=== PATIENT | male | born 1995 | race African-American/Black ===

== ENCOUNTER 2022-07-06 21:48 | Inpatient (IN) ==
[2022-07-06] MEDS ORDERED: ONDANSETRON INJ 2 MG/ML 2 ML VIAL IV STA (22:21)
[2022-07-06] MEDS ORDERED: SODIUM CHLORIDE 0.9% 1000ML 1,000 ML IV STA (22:21)
[2022-07-06] MEDS ORDERED: ACETAMINOPHEN 1,000 MG/100 ML VIAL IV STA (22:21)
[2022-07-06] MEDS ORDERED: ALBUT/IPRATROP 3MG/0.5MG NEB 3 ML VIAL NEB STA (23:02)
[2022-07-06] MEDS ORDERED: HYDROmorphone INJ 1 MG/ML SYRINGE IV STA (23:02)
--- NOTE | 2022-07-06 23:15 | Emergency Department Note ---
Impression & Plan Pain in testicle, History of right nephrectomy, Hx of unilateral orchiectomy, Epididymitis, Cellulitis of scrotum ED Provider Note INFORMANT: Patient ED PROVIDER(S): Kris Chanel MD CHIEF COMPLAINT: Testicle pain PLAN: Disposition: Admitted Condition: None Outpatient prescription management: none Referral: MEDICAL DECISION MAKING: Patient presented because of testicular pain. On physical examination he did have a red, tender swollen scrotum. He had tenderness clinically over his epididymitis. Patient was treated with IV Rocephin and doxycycline. He had unremarkable blood work and urinalysis. The patient had pain control with IV Dilaudid. Ultrasound imaging revealed findings concerning for scrotal cellulitis. Epididymitis could not be clearly identified per radiology. Clinically has this. In light of his history and current findings we discussed further management in the hospital and the patient was in agreement. Consultation was made with Dr. Jorge Bocanegra of the [facility] service. Patient was evaluated in the ER for further management. 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 Triage Nursing notes reviewed and agree them. Vital Signs: reviewed and remarkable for no significant abnormalities Prior /Outside records reviewed: Prior hospital records and prescriptions reviewed. Differential diagnosis: Testicular torsion, mass, infection, hernia, hydrocele, epididymitis, STI, trauma, intra-abdominal process, as well as other pathologies. Diagnostics, as interpreted by me: ECG: none Cardiac Monitoring: None Medical decision rules: none Imaging studies: Ultrasound imaging reveals evidence of scrotal cellulitis but no evidenceOf torsion HPI: The patient is a 27year old male who presents to the Emergency Room with complaints of testicular pain. This started 3 days ago and is worsening patient notes that he developed the pain. It was nontraumatic. He sought care at a hospital in [place] 2 days ago and had an ultrasound performed. He was diagnosed with epididymitis. He was started on Ceftin, oxycodone, and Zofran. He was given home packs of those medications the patient then went to the pharmacy to get the prescriptions filled but there were issues. They did not have the type of oxycodone prescribed and the pharmacist was concerned about his Ceclor allergy history. They were unable to contact the provider that prescribed the medication for adequate switches. Patient traveled back here from [place] to meet up with his boss. 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 The patient's boss came down to [place] to lemon picker his bus and the patient then drove his vehicle back here to [place]. The patient also notes the following associated symptoms, nausea, palpitations, right groin pain radiating up into the abdomen. The patient has found no benign relieving factors. Current pain is rated as 9/10. Patient has a history of having right kidney removed and left testicle removed. Pt denies fevers, chills, d iaphoresis, visual changes, neck pain, chest pain, breathing difficulties, vomiting, back pain, urinary symptoms, numbness, weakness, lymphadenopathy, rash, or other complaints. 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 Oropharynx unremarkable. EYES: Normal conjunctiva. Sclera non-icteric. NECK: Inspection normal. Non-tender. Supple. No nuchal rigidity. FROM. No masses. RESPIRATORY: Clear to auscultation. No wheezes. No rales. Normal respiratory effort. CARDIAC: Normal rate. Normal rhythm. No murmurs. No rubs. Extremities warm and well perfused. Pulses equal. No JVD. GI: Soft, non-distended. Right groin tenderness to palpation. No rebound or guarding. No masses. : Normal male. Scrotal examination reveals tenderness and swelling. Solitary testicle present. MUSCULOSKELETAL: Atraumatic. Chest examination reveals no tenderness. The back is symmetrical on inspection without obvious abnormality. There is no CVA tenderness to palpation. No joint edema. LOWER EXTREMITIES: Calves are equal size bilaterally and non-tender. No edema. No discoloration. NEURO: Normal sensorium. No sensory or motor deficits noted. SKIN: No rash or jaundice noted. c Past Med/Surg History Surgical History (Updated 07/08/22 @ 02:52 by Kris Chanel MD) History of right nephrectomy Hx of unilateral orchiectomy Social History Smoking Status: Never smoker Hx Alcohol Use: No Hx Substance Use: No Preferred Language: Somali Paralegal Required: No Beliefs That Will Affect Care: None Current Living Situation Comment: Lives with Gram Other Information That Helps Us Care for You: No Feels Safe at Home: Yes Safety Concerns: Feels Safe At This Time Assistive Devices: None Allergies Allergies Allergy/AdvReac Type Severity Reaction Status Date / Time cefaclor [From Ceclor] Allergy Intermediate Rash Verified 07/06/22 22:47 morphine Allergy Intermediate HAND Verified 07/06/22 22:47 SWELLED (GIVEN IV) Home Meds Home Medications Medication Instructions Recorded Confirmed acetaminophen 500 mg tablet 1,000 mg PO DIRECTED PRN Pain 07/06/22 07/06/22 (Tylenol Extra Strength) Results & Data (ED) Vital Signs Vital Signs - 24 hr 07/06/22 21:51 07/06/22 22:56 Temperature 37.4 C Temperature Source Temporal Artery Scan Pulse Rate 80 Pulse Rate [Apical] 69 Respiratory Rate 19 20 Respiratory Effort / Characteristics Non-Labored Spontaneous Respiratory Depth Normal Respiratory Pattern Regular Blood Pressure 126/83 Blood Pressure [Right Arm] 114/87 Blood Pressure Mean 97 Blood Pressure Mean [Right Arm] 96 Pulse Oximetry 100 98 Oxygen Delivery Method Room Air Room Air Sepsis Recent Fever Within 48 Hours No Sepsis New/Unexplained Change in Mental Status N/A Sepsis Action Taken by Nursing No Action Required Laboratory Data 07/06/22 22:50 07/06/22 22:50 Lab Results 07/06/22 07/06/22 07/07/22 Range/Units 22:50 22:50 01:30 WBC 10.80 (4.8-10.8) K/ul RBC 5.08 (4.70-6.10) M/uL Hgb 14.5 (14.0-18.0) g/dl Hct 43.1 (42.0-52.0) % MCV 84.8 (80.0-100.0) fL MCH 28.5 (25.0-34.0) pg MCHC 33.6 (32.0-36.0) g/dL RDW Std Deviation 40.3 (36.4-46.3) fL RDW Coeff of Lavell 13.0 (11.5-14.5) % Plt Count 167 (130-400) K/uL MPV 12.0 (9.4-12.4) fL Immature Gran % (Auto) 0.4 % Neut % (Auto) 74.2 % Lymph % (Auto) 17.0 % [place] % (Auto) 7.4 % Eos % (Auto) 0.7 % Baso % (Auto) 0.3 % Neut # (Auto) 8.01 H (1.40-6.50) K/uL Lymph # (Auto) 1.84 (1.2-3.4) K/uL [place] # (Auto) 0.80 H (0.11-0.59) K/uL Eos # (Auto) 0.08 (0-0.50) K/uL Baso # (Auto) 0.03 (0-0.2) K/uL Immature Gran # (Auto) 0.04 (0.01-0.20) K/uL Sodium 139 (136-145) mmol/L Potassium 3.4 L (3.5-5.1) mmol/L Chloride 103 (98-107) mmol/L Carbon Dioxide 30 (21-32) mmol/L Anion Gap 6 (3-11) BUN 13 (6-23) mg/dl Creatinine 1.02 (0.6-1.4) mg/dl Est Cr Clr Drug Dosing Not Reportable Est GFR ( Amer) 116.2 ml/min Est GFR (Non-Af Amer) 100.3 ml/min BUN/Creatinine Ratio 12.7 (10-20) Glucose 103 H (70-99(Fasting)) mg/dl Calcium 9.4 (8.6-10.3) mg/dl Total Bilirubin 0.6 (0.2-1.0) mg/dl AST 16 (13-39) U/L ALT 14 (7-52) U/L Alkaline Phosphatase 69 (34-104) U/L Total Protein 7.8 (6.0-8.3) gm/dl Albumin 4.2 (3.4-5.0) gm/dl Globulin 3.6 (2.5-4.0) gm/dl Albumin/Globulin Ratio 1.2 (0.9-2) SARS-CoV-2, RNA, NAAT NEGATIVE (NEGATIVE) Administered Medications Acetaminophen (Acetaminophen 325 Mg Tab) 650 mg PO Q4H PRN PRN Reason: pain/fever Stop: 08/06/22 04:32 Last Admin: 07/07/22 09:10 Dose: 650 mg Documented By: NEVIN Hydrocodone Bitart/Acetaminophen (Hydrocodone/Acetamophen 5/325mg Tab) 1 tab PO Q4H PRN PRN Reason: Moderate Pain (Scale 4, 5, 6) Stop: 07/21/22 04:32 Last Admin: 07/07/22 23:35 Dose: 1 tab Documented By: MANPREET Hydromorphone HCl (Hydromorphone Inj 0.5 Mg/0.5 Ml Syr) 0.25 mg IV Q4H PRN PRN Reason: Severe Pain (Scale 7, 8, 9,10) Stop: 07/21/22 04:32 Last Admin: 07/07/22 10:39 Dose: 0.25 mg Documented By: NEVIN Doxycycline Hyclate 100 mg/ (Dextrose) 110 mls @ 50 mls/hr IV Q12H GLORIA Stop: 07/17/22 08:59 Last Infusion: 07/07/22 23:35 Dose: 0 mls/hr Documented By: Admin: 07/07/22 21:24 Dose: 50 mls/hr Documented By: Infusion: 07/07/22 13:44 Dose: 0 mls/hr Documented By: Admin: 07/07/22 10:36 Dose: 50 mls/hr Documented By: NEVIN Ertapenem 1,000 mg/ Syringe 10 mls @ 2 mls/min IV Q24H GLORIA Stop: 07/17/22 07:59 Last Admin: 07/07/22 08:57 Dose: 2 mls/min Documented By: NEVIN Discontinued Medications Albuterol (Albut/Ipratrop 3mg/0.5mg Neb 3 Ml Vial) 3 ml NEB NOW STA; Protocol Stop: 07/06/22 23:03 Last Admin: 07/06/22 23:14 Dose: 3 ml Documented By: SHARLENE Hydromorphone HCl (Hydromorphone Inj 1 Mg/Ml Syringe) 1 mg IV NOW STA Stop: 07/06/22 23:03 Last Admin: 07/06/22 23:15 Dose: 1 mg Documented By: SHARLENE Sodium Chloride (Nss 1000ml) 1,000 mls @ 999 mls/hr IV .Q1H1M STA Stop: 07/06/22 23:21 Last Infusion: 07/06/22 23:51 Dose: 0 mls/hr Documented By: Admin: 07/06/22 22:50 Dose: 999 mls/hr Documented By: SHARLENE Acetaminophen (Ofirmev) 1,000 mg in 100 mls @ 400 mls/hr IV NOW STA Stop: 07/06/22 22:35 Last Infusion: 07/06/22 23:14 Dose: 0 mls/hr Documented By: Admin: 07/06/22 22:51 Dose: 400 mls/hr Documented By: SHARLENE Ceftriaxone Sodium (Rocephin) 2,000 mg in 70 mls @ 140 mls/hr IV NOW STA Stop: 07/07/22 01:37 Last Infusion: 07/07/22 02:11 Dose: 0 mls/hr Documented By: Admin: 07/07/22 01:24 Dose: 140 mls/hr Documented By: SHARLENE Doxycycline Hyclate 100 mg/ (Dextrose) 110 mls @ 50 mls/hr IV NOW STA Stop: 07/07/22 03:19 Last Infusion: 07/07/22 04:12 Dose: 0 mls/hr Documented By: Admin: 07/07/22 02:11 Dose: 50 mls/hr Documented By: SHARLENE Lidocaine HCl (Lidocaine 2% Jelly 5 Ml Tube) Confirm Administered Dose 5 ml EXT .STK-MED ONE Stop: 07/07/22 14:03 Last Admin: 07/07/22 14:23 Dose: Not Given Documented By: NEVIN Ondansetron HCl (Ondansetron Inj 2 Mg/Ml 2 Ml Vial) 4 mg IV NOW STA Stop: 07/06/22 22:22 Last Admin: 07/06/22 22:50 Dose: 4 mg Documented By: SHARLENE Discharge Plan Visit Data Chief Complaint: Groin Pain Stated Complaint: GROIN PAIN ED Provider: Kris Chanel Discharge Problem: Pain in testicle, History of right nephrectomy, Hx of unilateral orchiectomy, Epididymitis, Cellulitis of scrotum Patient Disposition: Admitted As Inpatient Discharge Instructions Interventions: ED Discharge Assessment Last Done: 07/07/22 04:13
[2022-07-06 23:37] LABS: Basophils # (auto) 0.03 K/uL (0-0.2); Basophils % (auto) 0.3 %; Eosinophils # (auto) 0.08 K/uL (0-0.50); Eosinophils % (auto) 0.7 %; Hematocrit (blood only) 43.1 % (42.0-52.0); Hemoglobin 14.5 g/dl (14.0-18.0); Immature Granulocytes # (auto) 0.04 K/uL (0.01-0.20); Immature Granulocytes % (auto) 0.4 %; Lymphocytes # (auto) 1.84 K/uL (1.2-3.4); Mean Corpuscular Hemoglobin 28.5 pg (25.0-34.0); Mean Corpuscular Hgb Conc 33.6 g/dL (32.0-36.0); Mean Corpuscular Volume 84.8 fL (80.0-100.0); Monocytes % (auto) 7.4 %; Neutrophils # (auto) 8.01 K/uL (1.40-6.50); Neutrophils % (auto) 74.2 %; Platelet Count 167 K/uL (130-400); RDW Standard Deviation 40.3 fL (36.4-46.3); Red Blood Count 5.08 M/uL (4.70-6.10)
[2022-07-06 23:39] LABS: Alanine Aminotransferase 14 U/L (7-52); Albumin Globulin Ratio 1.2 (0.9-2); Albumin Level 4.2 gm/dl (3.4-5.0); Alkaline Phosphatase 69 U/L (34-104); Anion Gap 6 (3-11); Aspartate Aminotransferase 16 U/L (13-39); BUN Creatinine Ratio 12.7 (10-20); Bilirubin,Total 0.6 mg/dl (0.2-1.0); Blood Urea Nitrogen 13 mg/dl (6-23); Calcium 9.4 mg/dl (8.6-10.3); Carbon Dioxide 30 mmol/L (21-32); Chloride 103 mmol/L (98-107); Est GFR (African American) 116.2 ml/min; Est GFR (Non-African American) 100.3 ml/min; Globulin 3.6 gm/dl (2.5-4.0); Glucose 103 mg/dl (70-99(Fasting)); Potassium 3.4 mmol/L (3.5-5.1); Sodium 139 mmol/L (136-145); Total Protein 7.8 gm/dl (6.0-8.3)
--- NOTE | 2022-07-07 00:32 | Ultrasound Report ---
Exam(s): US SCROTAL EXAM: US Scrotum CLINICAL HISTORY: Reason for exam: Solitary testicle, severe swelling pain. No trauma. TECHNIQUE: Real-time ultrasound of the scrotum with color Doppler and image documentation. COMPARISON: No relevant prior studies available. FINDINGS: Right testicle: The RIGHT testicle measures 4.2 x 2.3 x 2.4 cm. Positive blood flow. No torsion. Left testicle: Status post LEFT orchiectomy. Epididymides: Nonvisualized epididymis. Mild skin thickening. Correlate for scrotal cellulitis. Scrotum: See above. Lymph nodes: RIGHT inguinal lymph nodes are present. IMPRESSION: 1. Positive for blood flow in the RIGHT testicle. No testicular torsion. 2. Nonvisualized epididymis. Mild skin thickening. Correlate for scrotal cellulitis. Electronically signed by: Thong Carmona MD 07/07/22 00:31 AM
[2022-07-07] MEDS ORDERED: DOXYCYCLINE HYCLATE 100 MG in DEXTROSE 5% 100 ML IV STA (01:08)
[2022-07-07] MEDS ORDERED: cefTRIAXone SODIUM 2,000 MG/70 ML BAG IV STA (01:08)
[2022-07-07] MEDS ORDERED: ONDANSETRON INJ 2 MG/ML 2 ML VIAL IV PRN (04:33)
[2022-07-07] MEDS ORDERED: HYDROCODONE/ACETAMOPHEN 5/325MG TAB PO PRN (04:33)
--- NOTE | 2022-07-07 04:56 | History & Physical Report ---
Date of Service July 07, 2022 Assessment & Plan (1) History of right nephrectomy: (2) Hx of unilateral orchiectomy: (3) Epididymitis: Plan Right epididymitis/orchitis- Initially diagnosed in the [place] emergency department [address] scan with no evidence of testicular torsion, and blood flow into the right testicle was observed Received ceftriaxone and doxycycline IV in the ED here Invanz 1 g IV every 24 hours and doxycycline 100 mg IV every 12 hours Acetaminophen 650 mg by mouth every 6 hours as needed for mild pain or fever [place] 5/325, 1 every 4 hours as needed for moderate pain Dilaudid 0.25 mg IV every 3 hours as needed for severe pain Zofran 4 mg IV every 6 hours as needed Status post 1 L NSS in the ED Consult urology Admission and Anticipated Discharge Date Admission Date: July 07, 2022 History of Present Illness Chief Complaint: The patient presents to the emergency department with complaint of painful right testicle Primary Care Provider: NO PCP The patient is a 27-year-old male with a past medical history of right nephrectomy, left orchiectomy and prune belly syndrome. He presents to the emergency department with a diagnosis from a [place] emergency department of right epididymitis for which he was prescribed Ceftin, but was not filled due to pharmacy concerns regarding allergy to cephalosporins. This occurred 3 days ago, his symptoms have continued to worsen, and he presents to the emergency department at [facility] for further assessment. He reports having had a nephrectomy and orchiectomy performed when he was in fifth grade, and intermittently since that time has had self-limited episodes of hematuria. Allergies Allergy/AdvReac Type Severity Reaction Status Date / Time cefaclor [From Ceclor] Allergy Intermediate Rash Verified 07/06/22 22:47 morphine Allergy Intermediate HAND Verified 07/06/22 22:47 SWELLED (GIVEN IV) Home Medications Medication Instructions Recorded Confirmed Type acetaminophen 500 mg tablet 1,000 mg PO DIRECTED PRN Pain 07/06/22 07/06/22 History (Tylenol Extra Strength) Past Med/Surg History Surgical History (Updated 07/07/22 @ 04:54 by Jorge Bocanegra MD) History of right nephrectomy Hx of unilateral orchiectomy Social History Smoking Status: Unknown if ever smoked Feels Safe at Home: Yes Review of Systems Review of Systems: The patient denies chest pain, palpitations, shortness of breath, dyspnea on exertion, cough, lower extremity swelling, sore throat, fevers, chills, sweats, nausea, vomiting, diarrhea , constipation, blood in urine or stool, dysuria, urinary frequency or urgency, lightheadedness, dizziness, headache, memory loss, loss of consciousness, rash, imbalance, focal or generalized weakness, numbness or tingling in arms or legs, generalized arthralgias or myalgias,neck pain, or night sweats. The review of systems is otherwise negative other than for that already noted above, and at least 10 systems have been reviewed. Physical Exam Physical Exam: The patient is awake, alert and oriented 3, well developed and well nourished, normocephalic and atraumatic, lying in bed and in no acute distress. HEENT--PERRL, EOMI, mucous membranes and oropharynx dry. Neck--supple. No JVD. No bruits. Thyroid normal, trachea midline, no adenopathy. Heart--normal S1 and S2. No murmurs, rubs or gallops. Lungs--clear bilaterally, no respiratory distress, no accessory muscle use. Abdomen/pelvis--normal bowel sounds and soft. Right testicle swollen tender Extremities--no cyanosis or clubbing. No edema. There are good distal pulses b/l. Dermatologic--normal skin turgor, normal color, no abnormal lymph nodes, no rash. Neurologic--cranial nerves II through XII grossly intact. Rheumatologic--normal range of motion. Psychiatric--normal affect. Results & Data Results & Data Vital Signs (Past 12 Hours) Vital Signs Temp Pulse Pulse Resp BP BP Pulse Ox 07/07/22 02:47 72 16 117/73 93 07/07/22 00:15 81 07/07/22 00:15 82 18 127/80 93 07/06/22 23:34 87 L 07/06/22 22:56 69 20 114/87 98 07/06/22 21:51 37.4 C 80 19 126/83 100 O2 Del Method O2 Flow Rate 07/07/22 02:47 Room Air 07/07/22 00:15 07/07/22 00:15 Room Air 07/06/22 23:34 Nasal Cannula 0 07/06/22 22:56 Room Air 07/06/22 21:51 Room Air Laboratory Results Laboratory Results WBC 10.80 K/ul (4.8-10.8) 07/06/22 22:50 RBC 5.08 M/uL (4.70-6.10) 07/06/22 22:50 Hgb 14.5 g/dl (14.0-18.0) 07/06/22 22:50 Hct 43.1 % (42.0-52.0) 07/06/22 22:50 MCV 84.8 fL (80.0-100.0) 07/06/22 22:50 MCH 28.5 pg (25.0-34.0) 07/06/22 22:50 MCHC 33.6 g/dL (32.0-36.0) 07/06/22 22:50 RDW Std Deviation 40.3 fL (36.4-46.3) 07/06/22 22:50 RDW Coeff of Lavell 13.0 % (11.5-14.5) 07/06/22 22:50 Plt Count 167 K/uL (130-400) 07/06/22 22:50 MPV 12.0 fL (9.4-12.4) 07/06/22 22:50 Immature Gran % (Auto) 0.4 % 07/06/22 22:50 Neut % (Auto) 74.2 % 07/06/22 22:50 Lymph % (Auto) 17.0 % 07/06/22 22:50 [place] % (Auto) 7.4 % 07/06/22 22:50 Eos % (Auto) 0.7 % 07/06/22 22:50 Baso % (Auto) 0.3 % 07/06/22 22:50 Neut # (Auto) 8.01 K/uL (1.40-6.50) H 07/06/22 22:50 Lymph # (Auto) 1.84 K/uL (1.2-3.4) 07/06/22 22:50 [place] # (Auto) 0.80 K/uL (0.11-0.59) H 07/06/22 22:50 Eos # (Auto) 0.08 K/uL (0-0.50) 07/06/22 22:50 Baso # (Auto) 0.03 K/uL (0-0.2) 07/06/22 22:50 Immature Gran # (Auto) 0.04 K/uL (0.01-0.20) 07/06/22 22:50 Sodium 139 mmol/L (136-145) 07/06/22 22:50 Potassium 3.4 mmol/L (3.5-5.1) L 07/06/22 22:50 Chloride 103 mmol/L (98-107) 07/06/22 22:50 Carbon Dioxide 30 mmol/L (21-32) 07/06/22 22:50 Anion Gap 6 (3-11) 07/06/22 22:50 BUN 13 mg/dl (6-23) 07/06/22 22:50 Creatinine 1.02 mg/dl (0.6-1.4) 07/06/22 22:50 Est Cr Clr Drug Dosing Not Reportable 07/06/22 22:50 Est GFR ( Amer) 116.2 ml/min 07/06/22 22:50 Est GFR (Non-Af Amer) 100.3 ml/min 07/06/22 22:50 BUN/Creatinine Ratio 12.7 (10-20) 07/06/22 22:50 Glucose 103 mg/dl (70-99(Fasting)) H 07/06/22 22:50 Calcium 9.4 mg/dl (8.6-10.3) 07/06/22 22:50 Total Bilirubin 0.6 mg/dl (0.2-1.0) 07/06/22 22:50 AST 16 U/L (13-39) 07/06/22 22:50 ALT 14 U/L (7-52) 07/06/22 22:50 Alkaline Phosphatase 69 U/L (34-104) 07/06/22 22:50 Total Protein 7.8 gm/dl (6.0-8.3) 07/06/22 22:50 Albumin 4.2 gm/dl (3.4-5.0) 07/06/22 22:50 Globulin 3.6 gm/dl (2.5-4.0) 07/06/22 22:50 Albumin/Globulin Ratio 1.2 (0.9-2) 07/06/22 22:50 SARS-CoV-2, RNA, NAAT NEGATIVE (NEGATIVE) 07/07/22 01:30 Impressions Scrotum Ultrasound 07/06/22 22:21 Exam(s): US SCROTAL EXAM: US Scrotum CLINICAL HISTORY: Reason for exam: Solitary testicle, severe swelling pain. No trauma. TECHNIQUE: Real-time ultrasound of the scrotum with color Doppler and image documentation. COMPARISON: No relevant prior studies available. FINDINGS: Right testicle: The RIGHT testicle measures 4.2 x 2.3 x 2.4 cm. Positive blood flow. No torsion. Left testicle: Status post LEFT orchiectomy. Epididymides: Nonvisualized epididymis. Mild skin thickening. Correlate for scrotal cellulitis. Scrotum: See above. Lymph nodes: RIGHT inguinal lymph nodes are present. IMPRESSION: 1. Positive for blood flow in the RIGHT testicle. No testicular torsion. 2. Nonvisualized epididymis. Mild skin thickening. Correlate for scrotal cellulitis. Electronically signed by: Thong Carmona MD 07/07/22 00:31 AM Code Status & VTE Plan Code Status Full code VTE Prophylaxis Plan VTE Prophylaxis will be ordered: Yes PG Care Time/CCT Total # of Minutes Spent Total Time Spent with Patient: Total time spent is greater than 50% in coordination of care (as documented) at patient's floor/unit and/or counseling patient: Coding Level of Care Code 97639 INT INP/OBS CARE 3/75MIN Diagnoses History of right nephrectomy Z90.5 Hx of unilateral orchiectomy Z90.79 Epididymitis N45.1
--- NOTE | 2022-07-07 08:18 | Hospitalist Progress Note ---
Date of Service July 07, 2022 Assessment & Plan (1) Epididymitis: Plan: Right epididymitis/orchitis- Initially diagnosed in the [place] emergency department , rx ceftin but did not take wit h/o cephalosporin allergy Scrotum ultrasound with no evidence of testicular torsion, and blood flow into the right testicle was observed Received ceftriaxone and doxycycline IV in the ED converted to Invanz 1 g IV every 24 hours and doxycycline 100 mg IV every 12 hours Acetaminophen 650 mg by mouth every 6 hours as needed for mild pain or fever [place] 5/325, 1 every 4 hours as needed for moderate pain Dilaudid 0.25 mg IV every 3 hours as needed for severe pain Zofran 4 mg IV every 6 hours as needed Consult urology Right testicular pain is suspicious for epididymitis. He is currently being treated with doxycycline. Would recommend adjusting antibiotics as culture data becomes available if necessary. No evidence for torsion given good blood flow on ultrasound. Pending CT scan abdomen pelvis with oral contrast (2) Prune belly syndrome: Plan: Pt with history of [place] syndrome and reportedly around 5th grade had right nephrectomy and left orchiectomy Admission and Anticipated Discharge Date Admission Date: July 07, 2022 Subjective Patient is in his room he was still having significant right-sided groin pain. He is having difficulty moving about because of the pain. Having no fevers chills nausea vomiting or other issues Physical Exam Physical Exam: Abdomen exam is with NABS and soft he is uncomfortable in the lower quadrants mostly on the right side. His external genitalia showed may have 1 prominent right-sided testicle exquisitely tender to touch I cannot examine for hernia due to the degree of pain the patient was having Results & Data Results & Data Vital Signs (Past 12 Hours) Vital Signs Temp Pulse Pulse Pulse Resp BP BP 07/07/22 07:49 98.4 F 72 18 117/77 07/07/22 04:25 97.5 F L 72 16 07/07/22 02:47 72 16 07/07/22 00:15 81 07/07/22 00:15 82 18 07/06/22 23:34 07/06/22 22:56 69 20 07/06/22 21:51 99.3 F 80 19 126/83 BP Pulse Ox O2 Del Method O2 Flow Rate 07/07/22 07:49 96 Room Air 07/07/22 04:25 110/74 96 Room Air 07/07/22 02:47 117/73 93 Room Air 07/07/22 00:15 07/07/22 00:15 127/80 93 Room Air 07/06/22 23:34 87 L Nasal Cannula 0 07/06/22 22:56 114/87 98 Room Air 07/06/22 21:51 100 Room Air Laboratory Results Reviewed CBC Reviewed PRP Diagnostic Findings Ordered CT scan abdomen pelvis to evaluate for the degree of pain being out of proportion to physical findings PG Care Time/CCT Total # of Minutes Spent Total Time Spent with Patient: Total time spent is greater than 50% in coordination of care (as documented) at patient's floor/unit and/or counseling patient: Coding Level of Care Code 95568 SUB INP/OBS CARE 2/35MIN Diagnoses Epididymitis N45.1 Prune belly syndrome Q79.4
[2022-07-07] MEDS: ERTAPENEM SODIUM 1,000 MG in SYRINGE 0 ML IV SCH (08:57)
[2022-07-07] MEDS: ACETAMINOPHEN 325 MG TAB PO PRN (09:10)
[2022-07-07] MEDS: DOXYCYCLINE HYCLATE 100 MG in DEXTROSE 5% 100 ML IV SCH ×2 (10:36→21:24)
[2022-07-07 10:37] LABS: Appearance Urine Turbid (Clear); Bacteria Urine Automated Negative (Negative); Bilirubin Urine Negative (Negative); Blood Urine 1+ (Negative); Color Urine Dark Yellow; Epithelial Cell Urine Auto >30 /lpf (0-5); Glucose Urine UA Negative (Negative); Ketones Urine Negative (Negative); Leukocyte Esterase Urine 2+ (Negative); Nitrite Urine Negative (Negative); Protein Urine 1+ (Negative); Specific Gravity Urine 1.026 (1.000-1.030); Urobilinogen Urine Negative (Negative); WBC Urine Automated >30 /hpf (0-5); pH Urine 5.5 (4.5-7.5)
[2022-07-07] MEDS: HYDROmorphone INJ 0.5 MG/0.5 ML SYR IV PRN (10:39)
[2022-07-07 10:56] LABS: RBC Urine Automated 0-4 /hpf (0-4)
--- NOTE | 2022-07-07 11:30 | Urology Consultation ---
Date of Consultation July 07, 2022 Assessment & Plan (1) Epididymitis: (2) Pain in testicle: Plan Right testicular pain is suspicious for epididymitis. He is currently being treated with doxycycline. Would recommend adjusting antibiotics as culture data becomes available if necessary. No evidence for torsion given good blood flow on ultrasound. No preceding trauma reported. For pain control would recommend scheduled Tylenol, using hot or cold packs as needed, wearing tight or loose fitting underwear to his comfort. Narcotics reasonable for breakthrough pain. No plan for surgical intervention at this time. Urology will follow along. 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 He presented to the emergency department on 07/06/2022 with testicular pain. He started having pain well a couple days prior and was seen in an emergency department in [place]. At that time he was diagnosed with epididymal orchitis and was treated with a cephalosporin and oxycodone. Due to prior allergy to cephalosporins, the pharmacy did not fill his antibiotic and he instead drove back to [place]. Since that time, the pain is gradually worsened. He denies urinary symptoms alt huyen reports intermittent periods of feeling hot and cold. He feels like Dilaudid helps with the pain. He also notes the pain sometimes goes up into the groin. Evaluation in the emergency department was notable for normal WBC (10.80), hemoglobin 14.5. Creatinine was 1.02 and glucose was 103. Urinalysis was notable for 1+ blood, negative bacteria, negative nitrites, 2+ leukocyte esterase. Scrotal ultrasound was performed. I independently reviewed these images. The left testis is absent. His right testicle is in normal position with some hyperemia. No testicular masses are appreciated. He has mild dilation of the blood vessels of the spermatic cord. Radiology makes note of right inguinal lymph nodes being present. Allergies Allergy/AdvReac Type Severity Reaction Status Date / Time cefaclor [From Ceclor] Allergy Intermediate Rash Verified 07/06/22 22:47 morphine Allergy Intermediate HAND Verified 07/06/22 22:47 SWELLED (GIVEN IV) Home Medications Medication Instructions Recorded Confirmed Type acetaminophen 500 mg tablet 1,000 mg PO DIRECTED PRN Pain 07/06/22 07/06/22 History (Tylenol Extra Strength) Patient History Surgical History (Updated 07/07/22 @ 04:54 by Jorge Bocanegra MD) History of right nephrectomy Hx of unilateral orchiectomy Social History Smoking Status: Never smoker Hx Alcohol Use: No Hx Substance Use: No Preferred Language: Citizen Of [place] Sat Math Tutor Required: No Beliefs That Will Affect Care: None Current Living Situation Comment: Lives with Gram Other Information That Helps Us Care for You: No Feels Safe at Home: Yes Safety Concerns: Feels Safe At This Time Assistive Devices: None Review of Systems Review of Systems: 12 point review of systems negative except for otherwise indicated. Physical Exam Constitutional: well developed and well nourished; no acute distress Eyes: + anicteric sclerae; pupils not irregular Respiratory: normal respiratory effort; no respiratory distress, does not use accessory muscles and no cough Cardiovascular: well perfused Gastrointestinal (Abdomen): Inspection/Auscultation: abdomen normal to inspection; abdomen not distended Musculoskeletal: Extremities: extremities normal to inspection Skin: normal turgor; no rashes and no lesions Neurologic: moves all extremities and awake Psychiatric: Orientation: alert and oriented x 3 Genitourinary: Penis with orthotopic meatus, no discharge or drainage. Left testis is surgically absent. Left groin with minimal tenderness. Tender to palpation in the right groin but no induration of the spermatic cord appreciated and no palpable lymphadenopathy. Right testis is very tender to palpation but does not seem particularly swollen or indurated. No palpable masses appreciated. Results & Data Vital Signs (Past 12 Hours) Vital Signs Temp Pulse Pulse Pulse Resp BP BP 07/07/22 07:49 36.9 C 72 18 117/77 07/07/22 04:25 36.4 C L 72 16 110/74 07/07/22 02:47 72 16 117/73 07/07/22 00:15 81 07/07/22 00:15 82 18 127/80 07/06/22 23:34 Pulse Ox O2 Del Method O2 Flow Rate 07/07/22 07:49 96 Room Air 07/07/22 04:25 96 Room Air 07/07/22 02:47 93 Room Air 07/07/22 00:15 07/07/22 00:15 93 Room Air 07/06/22 23:34 87 L Nasal Cannula 0 PG Care Time/CCT Total # of Minutes Spent Total Time Spent with Patient: Total time spent is greater than 50% in coordination of care (as documented) at patient's floor/unit and/or counseling patient: Coding Level of Care Code 66594 IN/OBS CONSULT LVL 3,45M Diagnoses Epididymitis N45.1 Pain in testicle N50.819
[2022-07-07] MEDS ORDERED: LIDOCAINE 2% JELLY 5 ML TUBE EXT ONE (14:02)
--- NOTE | 2022-07-07 21:36 | Electrocardiogram Report ---
Test Reason : Blood Pressure : / mmHG Vent. Rate : 070 BPM Atrial Rate : 070 BPM P-R Int : 132 ms QRS Dur : 086 ms QT Int : 370 ms P-R-T Axes : 007 041 -01 degrees QTc Int : 399 ms Normal sinus rhythm Nonspecific T wave abnormality Abnormal ECG No previous ECGs available Confirmed by Roshan Santos ([id number]) on 07/07/2022 9:36:16 PM Referred By: REFERRED SELF Confirmed By:Roshan Santos
--- NOTE | 2022-07-07 22:00 | CT Scan Report ---
Exam(s): CT ABDOMEN + PELVIS Without Contrast EXAM: CT Abdomen and Pelvis Without Intravenous Contrast CLINICAL HISTORY: Reason for exam: abd pain. TECHNIQUE: Axial computed tomography images of the abdomen and pelvis without intravenous contrast. CTDI is 20.45 mGy and DLP is 1191.78 mGy-cm. Automated exposure control was utilized for the study. A dose lowering technique was utilized adhering to the principles of ALARA. COMPARISON: No relevant prior studies available. FINDINGS: Lung bases: Unremarkable. No mass. No consolidation. ABDOMEN: Liver: Unremarkable. Gallbladder and bile ducts: Unremarkable. No calcified stones. No ductal dilation. Pancreas: Unremarkable. No ductal dilation. Spleen: Mild splenomegaly measuring 14 cm. Adrenals: Unremarkable. No mass. Kidneys and ureters: Mild-moderate left-sided hydroureteronephrosis, without obstructing calculus. Absent RIGHT kidney, correlate for nephrectomy. Stomach and bowel: Unremarkable. No acute diverticulitis. No small bowel obstruction. No free intraperitoneal air. PELVIS: Appendix: Normal appendix. Bladder: Wall thickening of the urinary bladder. There is dysuria, correlate with urinalysis. No stones. Reproductive: Unremarkable as visualized. ABDOMEN and PELVIS: Intraperitoneal space: Unremarkable. No free air. No significant fluid collection. Bones/joints: No acute fracture. No dislocation. Soft tissues: RIGHT inguinal hernia. Vasculature: Unremarkable. No abdominal aortic aneurysm. Lymph nodes: Unremarkable. No enlarged lymph nodes. IMPRESSION: 1. No acute diverticulitis. No small bowel obstruction. No free intraperitoneal air. 2. Normal appendix. 3. Mild-moderate left-sided hydroureteronephrosis, without obstructing calculus. 4. Wall thickening of the urinary bladder. There is dysuria, correlate with urinalysis. 5. Mild splenomegaly measuring 14 cm. 6. Absent RIGHT kidney, correlate for nephrectomy. Electronically signed by: Thong Carmona MD 07/07/22 21:59 PM
[2022-07-08 07:42] LABS: Basophils # (auto) 0.01 K/uL (0-0.2); Basophils % (auto) 0.2 %; Eosinophils # (auto) 0.14 K/uL (0-0.50); Eosinophils % (auto) 2.2 %; Hematocrit (blood only) 42.1 % (42.0-52.0); Hemoglobin 14.2 g/dl (14.0-18.0); Immature Granulocytes # (auto) 0.01 K/uL (0.01-0.20); Immature Granulocytes % (auto) 0.2 %; Lymphocytes # (auto) 1.28 K/uL (1.2-3.4); Lymphocytes % (auto) 20.2 %; Mean Corpuscular Hemoglobin 28.3 pg (25.0-34.0); Mean Corpuscular Hgb Conc 33.7 g/dL (32.0-36.0); Mean Platelet Volume 11.4 fL (9.4-12.4); Monocytes # (auto) 0.69 K/uL (0.11-0.59); Monocytes % (auto) 10.9 %; Neutrophils % (auto) 66.3 %; Platelet Count 173 K/uL (130-400); RDW Coefficient of Variation 12.9 % (11.5-14.5); RDW Standard Deviation 39.6 fL (36.4-46.3); Red Blood Count 5.01 M/uL (4.70-6.10); White Blood Count 6.33 K/ul (4.8-10.8)
[2022-07-08] MEDS: ERTAPENEM SODIUM 1,000 MG in SYRINGE 0 ML IV SCH (07:50)
--- NOTE | 2022-07-08 07:54 | Hospitalist Progress Note ---
Date of Service July 08, 2022 Assessment & Plan (1) Epididymitis: Plan: Right epididymitis/orchitis- Initially diagnosed in the [place] emergency department , rx ceftin but did not take wit h/o cephalosporin allergy Scrotum ultrasound with no evidence of testicular torsion, and blood flow into the right testicle was observed Received ceftriaxone and doxycycline IV in the ED converted to Invanz 1 g IV every 24 hours and doxycycline 100 mg IV every 12 hours Acetaminophen 650 mg by mouth every 6 hours as needed for mild pain or fever Mclain 5/325, 1 every 4 hours as needed for moderate pain Dilaudid 0.25 mg IV every 3 hours as needed for severe pain Zofran 4 mg IV every 6 hours as needed Consult urology Right testicular pain is suspicious for epididymitis. He is currently being treated with doxycycline. Would recommend adjusting antibiotics as culture data becomes available if necessary. No evidence for torsion given good blood flow on ultrasound. 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 Denies left flank or abdominal pain. Denies fevers or chills. Denies nausea or vomiting. Voiding without issue. Denies hematuria or dysuria. Physical Exam Physical Exam: Abdomen exam is with NABS and soft he is uncomfortable in the lower quadrants mostly on the right side. His external genitalia showed may have 1 prominent right-sided testicle exquisitely tender to touch I cannot examine for hernia due to the degree of pain the patient was having Results & Data Results & Data Vital Signs (Past 12 Hours) Vital Signs Temp Pulse Resp BP Pulse Ox O2 Del Method 07/08/22 07:26 98.2 F 68 16 126/75 97 Room Air 07/07/22 21:16 99.1 F 76 18 131/89 96 Room Air PG Care Time/CCT Total # of Minutes Spent Total Time Spent with Patient: Total time spent is greater than 50% in coordination of care (as documented) at patient's floor/unit and/or counseling patient: Coding Level of Care Code 38645 SUB INP/OBS CARE MIN Diagnoses Epididymitis N45.1 Prune belly syndrome Q79.4
[2022-07-08 07:59] LABS: Albumin Level 3.8 gm/dl (3.4-5.0); BUN Creatinine Ratio 11.5 (10-20); Calcium 9.1 mg/dl (8.6-10.3); Creatinine Clr Calc Pharmacy 126.6 ml/min; Est GFR (Non-African American) 107.9 ml/min; Magnesium 1.9 mg/dl (1.7-2.4); Phosphorus 2.8 mg/dl (2.5-4.9)
[2022-07-08] MEDS: HYDROmorphone INJ 0.5 MG/0.5 ML SYR IV PRN (10:01)
[2022-07-08] MEDS: DOXYCYCLINE HYCLATE 100 MG in DEXTROSE 5% 100 ML IV SCH ×2 (10:02→21:09)
--- NOTE | 2022-07-08 13:53 | Urology Progress Note ---
Date of Service July 08, 2022 Assessment & Plan (1) Epididymitis: (2) Pain in testicle: (3) Hydronephrosis, left: Plan 27yo/M with a history of Prune Belly Syndrome with hx of right nephrectomy and left orchiectomy admitted with right epididymitis. Afebrile and hemodynamically stable. Labs show no leukocytosis and normal renal function. Urine culture prelim no growth. On Doxycycline and Ertapenem. Voiding spontaneously, continue to monitor. Scrotal ultrasound with no evidence of torsion given good blood flow on ultrasound. CT abd pelvis with mild-mod left hydro without obstructing stone, also notes bladder wall thickening. Hydronephrosis with hydroureter appears to be chronic but difficult to definitely determine without prior imaging. Also appears to have mild incomplete emptying. Recommend double voiding and timed voiding. Would also monitor PVR's. May be beneficial to decompress the bladder with a catheter for a few days if found to have elevated PVRs. For pain control would recommend scheduled Tylenol, using hot or cold packs as needed, wearing tight or loose fitting underwear to his comfort. Narcotics are reasonable for breakthrough pain. Continue supportive care and antibiotics, tailor as culture data becomes available. No plan for surgical intervention at this time. Urology will follow. Admission and Anticipated Discharge Date Admission Date: July 07, 2022 Subjective Patient examined at bedside this AM. Awake, resting in bed on arrival. No acute distress. Still with right-sided groin pain. Denies left flank or abdominal pain. Denies fevers or chills. Denies nausea or vomiting. Voiding without issue. Denies hematuria or dysuria. Review of Systems Constitutional: as per Subjective / HPI Gastrointestinal: as per Subjective / HPI Genitourinary: + as per Subjective / HPI Physical Exam Constitutional: no acute distress Respiratory: normal respiratory effort; no respiratory distress Gastrointestinal (Abdomen): Inspection/Auscultation: abdomen normal to inspection; abdomen not distended Neurologic: awake Psychiatric: Orientation: alert and oriented x 3 Genitourinary: Penis with orthotopic meatus, no discharge or drainage. Left testis is surgically absent. Left groin with minimal tenderness. Tender to palpation in the right groin. Right testis is very tender to palpation but does not seem particularly swollen or indurated. No palpable masses appreciated. Results & Data Vital Signs (Past 12 Hours) Vital Signs Temp Pulse Resp BP Pulse Ox O2 Del Method 07/08/22 07:26 36.8 C 68 16 126/75 97 Room Air PG Care Time/CCT Total # of Minutes Spent Total Time Spent with Patient: Total time spent is greater than 50% in coordination of care (as documented) at patient's floor/unit and/or counseling patient: Coding Level of Care Code 76973 SUB INP/OBS CARE 2/35MIN Diagnoses Epididymitis N45.1 Pain in testicle N50.819 Hydronephrosis, left N13.30
[2022-07-08] MEDS: ACETAMINOPHEN 325 MG TAB PO PRN (19:37)
[2022-07-08] MEDS: LIDOCAINE 5% 1 PATCH TD SCH (21:07)
[2022-07-09] MEDS: HYDROmorphone INJ 0.5 MG/0.5 ML SYR IV PRN (06:17)
[2022-07-09 06:39] LABS: Basophils # (auto) 0.02 K/uL (0-0.2); Basophils % (auto) 0.4 %; Eosinophils # (auto) 0.05 K/uL (0-0.50); Hematocrit (blood only) 43.6 % (42.0-52.0); Hemoglobin 14.7 g/dl (14.0-18.0); Immature Granulocytes # (auto) 0.04 K/uL (0.01-0.20); Immature Granulocytes % (auto) 0.8 %; Lymphocytes # (auto) 1.25 K/uL (1.2-3.4); Lymphocytes % (auto) 25.3 %; Mean Corpuscular Hemoglobin 28.5 pg (25.0-34.0); Mean Corpuscular Hgb Conc 33.7 g/dL (32.0-36.0); Mean Corpuscular Volume 84.5 fL (80.0-100.0); Mean Platelet Volume 11.5 fL (9.4-12.4); Monocytes % (auto) 14.2 %; Neutrophils # (auto) 2.88 K/uL (1.40-6.50); Neutrophils % (auto) 58.3 %; Platelet Count 182 K/uL (130-400); RDW Coefficient of Variation 12.7 % (11.5-14.5); RDW Standard Deviation 39.4 fL (36.4-46.3); Red Blood Count 5.16 M/uL (4.70-6.10); White Blood Count 4.94 K/ul (4.8-10.8)
[2022-07-09 07:04] LABS: Calcium 9.3 mg/dl (8.6-10.3); Creatinine Clr Calc Pharmacy 133.6 ml/min; Est GFR (African American) 133.4 ml/min; Est GFR (Non-African American) 115.1 ml/min; Magnesium 1.9 mg/dl (1.7-2.4); Potassium 3.9 mmol/L (3.5-5.1)
[2022-07-09] MEDS ORDERED: oxyCODONE HCL IR 5 MG TAB (IMMEDIATE RELEASE) PO PRN (07:13)
--- NOTE | 2022-07-09 07:14 | Hospitalist Progress Note ---
Date of Service July 09, 2022 Assessment & Plan (1) Epididymitis: Plan: Right epididymitis/orchitis- Initially diagnosed in the [place] emergency department , rx ceftin but did not take wit h/o cephalosporin allergy Scrotum ultrasound with no evidence of testicular torsion, and blood flow into the right testicle was observed Received ceftriaxone and doxycycline IV in the ED converted to Invanz 1 g IV every 24 hours and doxycycline 100 mg IV every 12 hours with pain will have scheduled tyleonol and ultram Dilaudid 0.25 mg IV every 3 hours as needed for severe pain Zofran 4 mg IV every 6 hours as needed Consult urology Right testicular pain is suspicious for epididymitis. He is currently being treated with doxycycline. Would recommend adjusting antibiotics as culture data becomes available if necessary. No evidence for torsion given good blood flow on ultrasound. 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 Voiding without issue. Denies hematuria or dysuria. Physical Exam Physical Exam: Abdomen exam is with NABS and soft he is uncomfortable in the lower quadrants mostly on the right side. Results & Data Results & Data Vital Signs (Past 12 Hours) Vital Signs Temp Pulse Resp BP Pulse Ox O2 Del Method 07/08/22 21:04 99.5 F 82 18 108/69 98 Room Air Laboratory Results Reviewed CBC Reviewed PRP PG Care Time/CCT Total # of Minutes Spent Total Time Spent with Patient: Total time spent is greater than 50% in coordination of care (as documented) at patient's floor/unit and/or counseling patient: Coding Level of Care Code 51117 SUB INP/OBS CARE 235MIN Diagnoses Epididymitis N45.1 Prune belly syndrome Q79.4 Hydronephrosis N13.30 Hydronephrosis, left N13.30
--- NOTE | 2022-07-09 08:14 | Urology Progress Note ---
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 No other change in care right now Admission and Anticipated Discharge Date Admission Date: July 07, 2022 Subjective Still very tender in the left testis No significant change in terms of his perception of the discomfort He does not have an elevated white count He has been afebrile Physical Exam Physical Exam: Very tender left testis to palpationno signs of skin infection or abscess, no fluctuance Results & Data Vital Signs (Past 12 Hours) Vital Signs Temp Pulse Resp BP Pulse Ox O2 Del Method 07/09/22 07:40 36.7 C 55 L 16 100/64 97 Room Air 07/08/22 21:04 37.5 C 82 18 108/69 98 Room Air PG Care Time/CCT Total # of Minutes Spent Total Time Spent with Patient: Total time spent is greater than 50% in coordination of care (as documented) at patient's floor/unit and/or counseling patient: Coding Level of Care Code 63673 SUB INP/OBS CARE 2/35MIN Diagnoses Epididymitis N45.1
[2022-07-09] MEDS: traMADol HCL 50 MG TABLET PO SCH ×3 (09:35→20:28)
[2022-07-09] MEDS: ACETAMINOPHEN 500 MG TAB PO SCH ×3 (09:35→20:28)
[2022-07-09] MEDS: ERTAPENEM SODIUM 1,000 MG in SYRINGE 0 ML IV SCH (09:37)
[2022-07-09] MEDS: DOXYCYCLINE HYCLATE 100 MG in DEXTROSE 5% 100 ML IV SCH ×2 (09:58→20:29)
[2022-07-09] MEDS ORDERED: Nursing to Pharmacy Communication SCH (10:00)
[2022-07-09] MEDS: LIDOCAINE 5% 1 PATCH TD SCH ×2 (10:14→20:37)
[2022-07-10] MEDS: ERTAPENEM SODIUM 1,000 MG in SYRINGE 0 ML IV SCH (08:17)
[2022-07-10] MEDS: ACETAMINOPHEN 500 MG TAB PO SCH ×3 (08:17→19:46)
[2022-07-10] MEDS: traMADol HCL 50 MG TABLET PO SCH ×3 (08:19→21:10)
[2022-07-10] MEDS: DOXYCYCLINE HYCLATE 100 MG in DEXTROSE 5% 100 ML IV SCH (08:58)
--- NOTE | 2022-07-10 12:57 | Urology Progress Note ---
Date of Service July 10, 2022 Assessment & Plan (1) Epididymitis: (2) Pain in testicle: (3) Hydronephrosis, left: Plan 27yo/M with a history of Prune Belly Syndrome with hx of right nephrectomy and left orchiectomy admitted with right epididymitis. Afebrile and hemodynamically stable. Labs 07/09- no leukocytosis and normal renal function. Urine culture negative. On Doxycycline and Ertapenem. Voiding spontaneously, continue to monitor. Bladder scan prn. Scrotal ultrasound with no evidence of torsion given good blood flow on ultrasound. CT abd pelvis with mild-mod left hydro without obstructing stone, also notes bladder wall thickening. Patient has congenital abnormality and a normal renal function therefore hydronephrosis with hydroureter on CT imaging is likely chronic. Continue doxycycline for now. Epididymitis is generally a slow problem to resolve and he will likely have continued pain for at least 10 to 14 days with a very gradual tapering of this discomfort. Continue supportive care and pain management. We will arrange outpatient follow-up with our service. Urology will sign off. Please contact us with any further questions, concerns, or changes in patient status. Admission and Anticipated Discharge Date Admission Date: July 07, 2022 Subjective Patient examined at bedside today. Awake, resting in bed on arrival. No acute distress. Reports right groin pain has improved. No fevers or chills. Denies nausea or vomiting. Voiding without issue. Review of Systems Constitutional: as per Subjective / HPI Gastrointestinal: as per Subjective / HPI Genitourinary: + as per Subjective / HPI Physical Exam Constitutional: no acute distress Respiratory: normal respiratory effort; no respiratory distress Neurologic: awake Psychiatric: Orientation: alert and oriented x 3 Results & Data Vital Signs (Past 12 Hours) Vital Signs Temp Pulse Resp BP Pulse Ox O2 Del Method 07/10/22 07:43 36.6 C 65 16 118/80 95 Room Air PG Care Time/CCT Total # of Minutes Spent Total Time Spent with Patient: Total time spent is greater than 50% in coordination of care (as documented) at patient's floor/unit and/or counseling patient: Coding Level of Care Code 28951 SUB INP/OBS CARE 2/35MIN Diagnoses Epididymitis N45.1 Pain in testicle N50.819 Hydronephrosis, left N13.30
--- NOTE | 2022-07-10 18:21 | Hospitalist Progress Note ---
Date of Service July 10, 2022 Assessment & Plan (1) Epididymitis: Plan: Right epididymitis/orchitis- Initially diagnosed in the [place] emergency department , rx ceftin but did not take wit h/o cephalosporin allergy Scrotum ultrasound with no evidence of testicular torsion, and blood flow into the right testicle was observed Received ceftriaxone and doxycycline IV in the ED converted to Invanz 1 g IV every 24 hours and doxycycline 100 mg IV every 12 hours does not want scheduled medication, may go home on doxycycline and cipro Dilaudid 0.25 mg IV every 3 hours as needed for severe pain requiring pain medication Zofran 4 mg IV every 6 hours as needed Consulted urology Right testicular pain is suspicious for epididymitis. He is currently being treated with doxycycline. Would recommend adjusting antibiotics as culture data becomes available if necessary. No evidence for torsion given good blood flow on ultrasound. 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 No fevers or chills. Denies nausea or vomiting. Voiding without issue. needing less pain control Physical Exam Physical Exam: Abdomen exam is with NABS and soft he is uncomfortable in the lower quadrants mo stly on the right side. Results & Data Results & Data Vital Signs (Past 12 Hours) Vital Signs Temp Pulse Resp BP Pulse Ox O2 Del Method 07/10/22 15:08 98.4 F 56 L 16 114/69 97 Room Air 07/10/22 07:43 97.9 F 65 16 118/80 95 Room Air PG Care Time/CCT Total # of Minutes Spent Total Time Spent with Patient: Total time spent is greater than 50% in coordination of care (as documented) at patient's floor/unit and/or counseling patient: Coding Level of Care Code 35039 SUB INP/OBS CARE MIN Diagnoses Epididymitis N45.1 Prune belly syndrome Q79.4 Hydronephrosis N13.30 Hydronephrosis, left N13.30
[2022-07-10] MEDS: DOXYCYCLINE HYCLATE 100 MG CAP PO SCH (19:45)
[2022-07-10] MEDS: LIDOCAINE 5% 1 PATCH TD SCH (19:45)
[2022-07-11] MEDS: ERTAPENEM SODIUM 1,000 MG in SYRINGE 0 ML IV SCH (07:57)
[2022-07-11] MEDS: traMADol HCL 50 MG TABLET PO SCH (07:58)
[2022-07-11] MEDS: ACETAMINOPHEN 500 MG TAB PO SCH (07:58)
[2022-07-11] MEDS: DOXYCYCLINE HYCLATE 100 MG CAP PO SCH (07:59)
--- NOTE | 2022-07-11 12:06 | Discharge Summary ---
Date of Service July 11, 2022 Admission HPI Per Admitting Provider The patient is a 27-year-old male with a past medical history of right nephrectomy, left orchiectomy and prune belly syndrome. He presents to the emergency department with a diagnosis from a [place] emergency department of right epididymitis for which he was prescribed Ceftin, but was not filled due to pharmacy concerns regarding allergy to cephalosporins. This occurred 3 days ago, his symptoms have continued to worsen, and he presents to the emergency department at [facility] for further assessment. He reports having had a nephrectomy and orchiectomy performed when he was in fifth grade, and intermittently since that time has had self-limited episodes of hematuria. 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 Discharge Exam Patient did endorse some unsteadiness when he stood up otherwise is in good condition with improved pain to little pain at all Discharge Data Allergies Allergy/AdvReac Type Severity Reaction Status Date / Time cefaclor [From Ceclor] Allergy Intermediate Rash Verified 07/06/22 22:47 morphine Allergy Intermediate HAND Verified 07/06/22 22:47 SWELLED (GIVEN IV) Consultations 07/07/22 02:12 ED Decision to Admit Stat 07/07/22 04:33 Consult Urology Routine Ordered Studies 07/06/22 22:21 US scrotum/testicle Stat 07/07/22 20:39 CT abd pelvis wo con Routine Hospital Course (1) Epididymitis: Right epididymitis/orchitis- Initially diagnosed in the [place] emergency department , rx ceftin but did not take wit h/o cephalosporin allergy ertapenem and doxycycline in the hospital and then transition to home on doxycycline and cipro Consulted urology Right testicular pain is suspicious for epididymitis. He is currently being treated with doxycycline. Would recommend adjusting antibiotics as culture data becomes available if necessary. No evidence for torsion given good blood flow on ultrasound. 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 around 5th grade had right nephrectomy and left orchiectomy (3) Hydronephrosis: (4) Hydronephrosis, left: Plan Patient off work from 14 through 20-second with a 25 pound lifting restriction for 1 week after the 22nd Total Time Total Time Spent Total Time Spent (In Minutes): It required greater than 30 minutes to prepare this patient for discharge Discharge Plan Discharge Items Patient Disposition: Home - Self-Care Reason For Visit: EPIDYDIMITIS Discharge Diagnosis: Epididymitis Chronic left hydroureter Previous right nephrectomy Previous left orchiectomy Activity: Per Instructions section Non-emergency contact: Primary Care Provider, [employer] Specialist and Urologist Call non-emergency contact if: your symptoms worsen Follow-up/Referrals: Darryl Santana MD [Physician] - (KENROY GONZALEZ SENT MESSAGE TO OFFICE TO CALL PATIENT WITH A HOSPITAL FOLLOW UP IN A FEW WEEKS.) PCP,NO [Primary Care Provider] - Diet: Regular Addtl Attending Provider Instructions: Continue antibiotics. Follow-up with urology. He will be receiving a call from nephrology regarding a follow-up appointment given the fact that you have 1 kid pramod. Please drink plenty of water or liquids to encourage good urination Pending Studies at Discharge: No Stand-Alone Forms: [employer], Pain - Opioid Pain Management, Work/School Release, Smoking Cessation Medications and DC Order Prescriptions: New doxycycline hyclate 100 mg Capsule 100 mg PO Q12 Qty: 14 0RF tramadol 50 mg Tablet 50 mg PO TID PRN (Reason: Pain) Qty: 10 0RF ciprofloxacin HCl [Cipro] 500 mg tablet 500 mg PO BID Qty: 14 0RF Continued acetaminophen [Tylenol Extra Strength] 500 mg Tablet 1,000 mg PO DIRECTED PRN (Reason: Pain) Discharge Orders: Discharge Order (Routine); Ordered 07/11/22 Ordered By: Cristhian Tripathi Admission Data Admit Date/Time: 07/07/22 02:22 Attending Provider: Cristhian Tripathi Admit Provider: Jorge Bocanegra Primary Care Provider: PCP,NO Other Providers: Jorge Bocanegra ; Darryl Santana Other Interventions: Discharge Summary Assessment (RN) Last Done: 07/11/22 10:57 Coding Level of Care Code 66574 INP/OBS DISCH >30 MIN Diagnoses Epididymitis N45.1 Prune belly syndrome Q79.4 Hydronephrosis N13.30 Hydronephrosis, left N13.30
== END 2022-07-11 12:35 | disposition home or self-care (01) | DRG 728 ==
LOC: ED 21:48 → 3E 07-07 02:22 → SUATTDRO 07-07 02:22 → 3E 07-07 04:13